=== PATIENT | female | born 1965 | race Caucasian/White ===

== ENCOUNTER 2017-07-12 20:33 | Emergency (ER) | payer BC ==
[~2017-07-12] VITALS: Ht 157.5 cm; Wt 104.3 kg
[~2017-07-12 20:33] MED LIST: ACETAMINOPHEN-1 EAC1 PO; AMBIEN 5 MG TABL5 M1 PO; CYMBALTA60 MG PO; DILAUDID 4 MG TA4 M1 PO; EPIPEN 2-P0.3 MG/0.3 IM; FLAGYL500 MG PO; GLUCOPHAGE1000 MG PO; HYDROCODONE-AP1 EAC6 PO; LEVAQUIN 750 M750 MG PO; LIPITOR40 MG PO; LISINOPRIL20 MG PO; MELOXICAM10 GM PO; MORPHINE SULFAT15 M3 PO; NASONEX17 GM NASAL; NEURONTIN 300300 M1 PO; NORCO 5-325 TA1 EACH PO; OMEPRAZOLE 20 M20 M1 PO; OXYCONTIN20 M1 PO; PEPTO-BISMOL262 M1 PO; PERCOCET 5-3251 EACH PO; POTASSIUM20 PO; PRAVACHOL 20 MG20 M1 PO; PREDNISONE 10 M10 MG PO; PRINIVIL20 MG PO; PRINZIDE 20-251 EACH PO; RANITIDINE 150150 MG PO; TESSALON PERLE100 MG PO; THROAT LOZENGE1 EACH MM; TOPAMAX50 MG PO; ZOFRAN4 MG PO; ZPAK PO
[2017-07-12] MEDS ORDERED: DICLOFENAC SODI25 MG PO (20:47)
[2017-07-12] MEDS ORDERED: TRAMADOL 50 MG50 MG (20:47)
[2017-07-12] MEDS ORDERED: ZANAFLEX4 MG (20:48)
[2017-07-12] MEDS ORDERED: OMEGA-31000 M1 (20:48)
[2017-07-12] MEDS ORDERED: ZYRTEC10 M5 (20:48)
[2017-07-12] MEDS ORDERED: NASONEX17 GM (20:49)
[2017-07-12] MEDS ORDERED: ERGOCALCIF50000 UNIT (20:49)
[2017-07-12] MEDS ORDERED: BENADRYL25 MG (20:49)
[2017-07-12] MEDS ORDERED: VITAMIN B-12500 MCG (20:50)
[2017-07-12] MEDS ORDERED: CYMBALTA60 MG (20:50)
[2017-07-12 21:41] LABS: ABSOLUTE BASOPHILS 0.1 thou/uL (0.0-0.2); ABSOLUTE EOSINOPHILS 0.1 thou/uL (0.0-0.7); ABSOLUTE LYMPHOCYTES 4.1 thou/uL (0.8-5.3); ABSOLUTE MONOCYTES 0.8 thou/uL (0.0-1.2); ABSOLUTE NEUTROPHILS 6.5 thou/uL (1.6-8.1); BASOPHILS 0.6 %; EOSINOPHILS 0.5 %; HEMATOCRIT 44.8 % (37.0-47.0); HEMOGLOBIN 15.1 gm/dL (12.0-15.0); LYMPHOCYTES 35.7 %; MCHC 33.8 g/dL (28.0-37.0); MCV 88.5 fL (80.0-100.0); MONOCYTES 7.1 %; MPV 9.6 fl. (7.2-11.1); NUCLEATED RBCS 0 /100WBC; PLATELET COUNT* 348 thou/uL (150-400); POLYS 56.1 %; RBC 5.06 mil/uL (4.20-5.00); RDW-CV 13.5 % (10.5-14.5); WBC 11.6 thou/uL (4.0-11.0)
[2017-07-12 21:58] LABS: CALCIUM 9.4 mg/dL (8.5-10.1); CREATININE 1.2 mg/dL (0.6-1.3); POTASSIUM 3.1 mmol/L (3.5-5.1)
[2017-07-12 22:02] LABS: TOTAL BILIRUBIN 0.4 mg/dL (<0.1-1.0); TOTAL PROTEIN 8.1 g/dL (6.4-8.2)
[2017-07-13 00:34] LABS: URINE BILIRUBIN NEGATIVE (Negative); URINE BLOOD NEGATIVE (Negative); URINE CLARITY CLEAR; URINE COLOR YELLOW; URINE GLUCOSE-RANDOM NEGATIVE (Negative); URINE KETONES 1+ (Negative); URINE LEUKOCYTES-REFLEX NEGATIVE (Negative); URINE NITRITE-REFLEX NEGATIVE (Negative); URINE PROTEIN NEGATIVE (Negative); URINE SPECIFIC GRAVITY 1.015 (1.005-1.030); URINE UROBILINOGEN 0.2 E.U./dl (0.2-1.0)
[2017-07-13] MEDS ORDERED: BENTYL 20 MG TA20 M1 PO (01:03)
[2017-07-13] MEDS ORDERED: ZOFRAN ODT4 MG PO (01:03)
[2017-07-13 01:38] VITALS: BP 102/71
== END 2017-07-13 01:39 | disposition home or self-care (01) ==
LOC: M.ERS 20:33
PROVIDERS: Nurse Practitioner Family
DX: K52.9 Noninfective gastroenteritis and colitis, unspecified (principal); K59.8 Other specified functional intestinal disorders; I10 Essential (primary) hypertension; E78.00 Pure hypercholesterolemia, unspecified; G89.29 Other chronic pain; M32.9 Systemic lupus erythematosus, unspecified; Z90.710 Acquired absence of both cervix and uterus; Z96.642 Presence of left artificial hip joint; Z86.718 Personal history of other venous thrombosis and embolism; Z98.890 Other specified postprocedural states; Z91.013 Allergy to seafood; Z88.1 Allergy status to other antibiotic agents; Z88.4 Allergy status to anesthetic agent; Z91.041 Radiographic dye allergy status; Z88.0 Allergy status to penicillin; Z88.8 Allergy status to other drugs, medicaments and biological substances

== ENCOUNTER 2017-09-01 09:39 | Emergency (ER) | payer BC ==
[~2017-09-01] VITALS: Ht 157.5 cm; Wt 102.1 kg
[~2017-09-01 09:39] MED LIST changes: +BENADRYL25 MG; +BENTYL 20 MG TA20 M1 PO; +CYMBALTA60 MG; +DICLOFENAC SODI25 MG PO; +ERGOCALCIF50000 UNIT; +NASONEX17 GM; +OMEGA-31000 M1; +TRAMADOL 50 MG50 MG; +VITAMIN B-12500 MCG; +ZANAFLEX4 MG; +ZOFRAN ODT4 MG PO; +ZYRTEC10 M5
[2017-09-01] MEDS ORDERED: PERCOCET PO (09:58)
[2017-09-01 10:18] LABS: URINE BILIRUBIN NEGATIVE (Negative); URINE BLOOD NEGATIVE (Negative); URINE CLARITY CLEAR; URINE COLOR YELLOW; URINE GLUCOSE-RANDOM NEGATIVE (Negative); URINE KETONES NEGATIVE (Negative); URINE LEUKOCYTES-REFLEX NEGATIVE (Negative); URINE NITRITE-REFLEX NEGATIVE (Negative); URINE PROTEIN NEGATIVE (Negative); URINE SPECIFIC GRAVITY 1.015 (1.005-1.030)
[2017-09-01 10:50] LABS: ABSOLUTE EOSINOPHILS 0.1 thou/uL (0.0-0.7); ABSOLUTE MONOCYTES 0.4 thou/uL (0.0-1.2); ABSOLUTE NEUTROPHILS 3.6 thou/uL (1.6-8.1); BASOPHILS 0.6 %; EOSINOPHILS 1.2 %; HEMATOCRIT 39.7 % (37.0-47.0); HEMOGLOBIN 13.5 gm/dL (12.0-15.0); LYMPHOCYTES 33.3 %; MCH 30.5 pg (26.0-34.0); MCHC 33.9 g/dL (28.0-37.0); MCV 89.8 fL (80.0-100.0); MONOCYTES 6.1 %; MPV 9.5 fl. (7.2-11.1); NUCLEATED RBCS 0 /100WBC; PLATELET COUNT* 306 thou/uL (150-400); POLYS 58.8 %; RBC 4.42 mil/uL (4.20-5.00); RDW-CV 14.3 % (10.5-14.5); WBC 6.1 thou/uL (4.0-11.0)
[2017-09-01 10:56] LABS: CALCIUM 8.8 mg/dL (8.5-10.1); CREATININE 0.9 mg/dL (0.6-1.3); POTASSIUM 3.3 mmol/L (3.5-5.1)
[2017-09-01 11:01] LABS: ALBUMIN 3.5 g/dL (3.4-5.0); TOTAL BILIRUBIN 0.4 mg/dL (<0.1-1.0); TOTAL PROTEIN 7.2 g/dL (6.4-8.2)
[2017-09-01] MEDS ORDERED: ROBAXIN500 MG PO (11:12)
[2017-09-01 11:34] VITALS: BP 108/62
== END 2017-09-01 11:35 | disposition home or self-care (01) ==
LOC: M.ERS 09:39
PROVIDERS: Nurse Practitioner Family
DX: S29.012A Strain of muscle and tendon of back wall of thorax, initial encounter (principal); I10 Essential (primary) hypertension; E78.00 Pure hypercholesterolemia, unspecified; E11.9 Type 2 diabetes mellitus without complications; M79.7 Fibromyalgia; M32.9 Systemic lupus erythematosus, unspecified; M86.9 Osteomyelitis, unspecified; Z96.642 Presence of left artificial hip joint; Z90.710 Acquired absence of both cervix and uterus; Z86.718 Personal history of other venous thrombosis and embolism; Z86.711 Personal history of pulmonary embolism; Z91.013 Allergy to seafood; Z88.1 Allergy status to other antibiotic agents; Z91.041 Radiographic dye allergy status; Z88.0 Allergy status to penicillin; X58.XXXA Exposure to other specified factors, initial encounter; Y93.89 Activity, other specified; Y92.89 Other specified places as the place of occurrence of the external cause; Y99.8 Other external cause status

== ENCOUNTER 2019-04-14 12:25 | Emergency (ER) | payer BC ==
[~2019-04-14] VITALS: Ht 160 cm; Wt 106.6 kg
[~2019-04-14 12:25] MED LIST changes: +PERCOCET PO; +ROBAXIN500 MG PO
[2019-04-14] MEDS ORDERED: XARELTO10 MG PO (12:34)
[2019-04-14] MEDS ORDERED: OMEPRAZOLE40 MG PO (12:36)
[2019-04-14] MEDS ORDERED: IMITREX 50 MG T50 MG PO (12:37)
[2019-04-14] MEDS ORDERED: PNV 29-1 TABLE1 EACH PO (12:37)
[2019-04-14] MEDS ORDERED: MIRAPEX ER0.75 MG PO (12:38)
[2019-04-14] MEDS ORDERED: ULTRAM 50MG TAB50 MG PO (12:40)
[2019-04-14] MEDS ORDERED: BELSOMRA20 MG PO (12:41)
[2019-04-14 12:46] LABS: ABSOLUTE BASOPHILS 0.1 thou/uL (0.0-0.2); ABSOLUTE EOSINOPHILS 0.2 thou/uL (0.0-0.7); ABSOLUTE LYMPHOCYTES 1.8 thou/uL (0.8-5.3); ABSOLUTE MONOCYTES 0.6 thou/uL (0.0-1.2); BASOPHILS 0.8 %; HEMATOCRIT 37.8 % (37.0-47.0); HEMOGLOBIN 12.6 gm/dL (12.0-15.0); LYMPHOCYTES 27.2 %; MCH 28.7 pg (26.0-34.0); MCHC 33.2 g/dL (28.0-37.0); MCV 86.6 fL (80.0-100.0); MONOCYTES 8.6 %; MPV 8.9 fl. (7.2-11.1); NUCLEATED RBCS 0 /100WBC; PLATELET COUNT* 334 thou/uL (150-400); POLYS 60.4 %; RBC 4.37 mil/uL (4.20-5.00); RDW-CV 15.1 % (10.5-14.5); WBC 6.6 thou/uL (4.0-11.0)
[2019-04-14 12:53] LABS: ANION GAP 9 mmol/L (7-16); BUN 16 mg/dL (7-18); CALCIUM 9.4 mg/dL (8.5-10.1); CHLORIDE 101 mmol/L (98-107); CO2 27 mmol/L (21-32); CREATININE 0.9 mg/dL (0.6-1.3); GLUCOSE 100 mg/dL (70-99); INR 1.2; POTASSIUM 3.5 mmol/L (3.5-5.1); SODIUM 137 mmol/L (136-145)
[2019-04-14 13:07] LABS: ALBUMIN 3.6 g/dL (3.4-5.0); ALKALINE PHOSPHATASE 106 U/L (46-116); CK-MB MASS < 0.5 ng/mL (<0.5-3.6); LIPASE 156 U/L (73-393); MAGNESIUM 1.9 mg/dL (1.8-2.4); NT-PRO BRAIN NAT PEPTIDE 59 pg/mL (<300); SGOT 16 U/L (15-37); SGPT 28 U/L (30-65); TOTAL BILIRUBIN 0.3 mg/dL (<0.1-1.0); TOTAL PROTEIN 7.6 g/dL (6.4-8.2)
[2019-04-14 15:14] VITALS: BP 103/61
--- NOTE | 2019-04-15 14:23 | EKG ---
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 : 1965 Requested By: Boston Godoy Order Number: [id number] MD: Dominic De Anda Measurements Intervals [place] Rate: 94 P: 43 [place]: 165 QRS: 13 QRSD: 100 T: 17 QT: 337 QTc: 422 Interpretive Statements Sinus rhythm Compared to ECG 01/30/2017 13:34:39 Sinus tachycardia no longer present Inferior Q waves no longer present Q waves no longer present T-wave abnormality no longer present Electronically Signed On 04-15-2019 14:23:02 CDT by Dominic De Anda [email or web address] <ELECTRONICALLY SIGNED> By: Ricardo De Anda MD, [facility] 04/15/19 1423 1229 1229 Ricardo De Anda MD, [facility] /EPI
== END 2019-04-14 15:17 | disposition home or self-care (01) ==
LOC: M.ERS 12:25
PROVIDERS: Family Medicine
DX: R07.89 Other chest pain (principal); I10 Essential (primary) hypertension; E78.00 Pure hypercholesterolemia, unspecified; E11.9 Type 2 diabetes mellitus without complications; M79.7 Fibromyalgia; G89.29 Other chronic pain; Z88.0 Allergy status to penicillin; Z91.041 Radiographic dye allergy status; Z88.1 Allergy status to other antibiotic agents; Z91.013 Allergy to seafood; Z88.6 Allergy status to analgesic agent; Z96.642 Presence of left artificial hip joint; Z98.51 Tubal ligation status; Z86.718 Personal history of other venous thrombosis and embolism; Z86.711 Personal history of pulmonary embolism

== ENCOUNTER 2020-05-25 09:23 | Emergency (ER) | payer BC ==
[~2020-05-25] VITALS: Ht 157.5 cm; Wt 113.4 kg
[~2020-05-25 09:23] MED LIST changes: +BELSOMRA20 MG PO; +IMITREX 50 MG T50 MG PO; +MIRAPEX ER0.75 MG PO; +OMEPRAZOLE40 MG PO; +PNV 29-1 TABLE1 EACH PO; +ULTRAM 50MG TAB50 MG PO; +XARELTO10 MG PO
[2020-05-25] MEDS ORDERED: AMITRIPTYLINE H25 M2 PO (09:53)
[2020-05-25 09:55] LABS: HEMATOCRIT 37.2 % (37.0-47.0); MCH 27.8 pg (26.0-34.0); MCHC 32.3 g/dL (28.0-37.0); MPV 7.9 fl. (7.2-11.1); RBC 4.32 mil/uL (4.20-5.00); RDW-CV 16.3 % (10.5-14.5); WBC 4.9 thou/uL (4.0-11.0)
[2020-05-25 10:05] LABS: CALCIUM 8.6 mg/dL (8.5-10.1); CREATININE 0.8 mg/dL (0.6-1.3); POTASSIUM 4.1 mmol/L (3.5-5.1)
[2020-05-25 10:10] LABS: TOTAL BILIRUBIN 0.3 mg/dL (<0.1-1.0)
[2020-05-25] MEDS ORDERED: FLEXERIL PO (11:04)
[2020-05-25 11:20] VITALS: BP 162/98
== END 2020-05-25 11:23 | disposition home or self-care (01) ==
LOC: M.ERS 09:23
PROVIDERS: Emergency Medicine Emergency Medical Services
DX: M79.605 Pain in left leg (principal); I10 Essential (primary) hypertension; E78.00 Pure hypercholesterolemia, unspecified; E11.9 Type 2 diabetes mellitus without complications; M79.7 Fibromyalgia; M86.9 Osteomyelitis, unspecified; Z79.899 Other long term (current) drug therapy; Z91.013 Allergy to seafood; Z88.1 Allergy status to other antibiotic agents; Z88.0 Allergy status to penicillin; Z88.8 Allergy status to other drugs, medicaments and biological substances; Z90.49 Acquired absence of other specified parts of digestive tract; Z90.710 Acquired absence of both cervix and uterus; Z86.718 Personal history of other venous thrombosis and embolism

== ENCOUNTER 2020-12-17 12:48 | Emergency (ER) | payer BC ==
[~2020-12-17] VITALS: Ht 157.5 cm; Wt 127.9 kg
[~2020-12-17 12:48] MED LIST changes: +AMITRIPTYLINE H25 M2 PO; +FLEXERIL PO
[2020-12-17] MEDS ORDERED: NORCO5 PO (15:58)
[2020-12-17 16:06] VITALS: BP 156/97
== END 2020-12-17 16:08 | disposition home or self-care (01) ==
LOC: M.ERS 12:48
DX: S70.02XA Contusion of left hip, initial encounter (principal); S80.02XA Contusion of left knee, initial encounter; I10 Essential (primary) hypertension; E78.00 Pure hypercholesterolemia, unspecified; E11.9 Type 2 diabetes mellitus without complications; M79.7 Fibromyalgia; M32.9 Systemic lupus erythematosus, unspecified; Z90.710 Acquired absence of both cervix and uterus; Z86.718 Personal history of other venous thrombosis and embolism; Z86.711 Personal history of pulmonary embolism; Z96.653 Presence of artificial knee joint, bilateral; Z96.643 Presence of artificial hip joint, bilateral; Z91.041 Radiographic dye allergy status; Z88.0 Allergy status to penicillin; Z88.1 Allergy status to other antibiotic agents; Z88.8 Allergy status to other drugs, medicaments and biological substances; Z91.013 Allergy to seafood; W01.0XXA Fall on same level from slipping, tripping and stumbling without subsequent striking against object, initial encounter; Y93.89 Activity, other specified; Y92.89 Other specified places as the place of occurrence of the external cause; Y99.8 Other external cause status

== ENCOUNTER 2021-01-10 14:40 | Emergency (ER) | payer BC ==
[~2021-01-10] VITALS: Ht 157.5 cm; Wt 114.8 kg
[~2021-01-10 14:40] MED LIST changes: +NORCO5 PO
[2021-01-10 15:05] LABS: ABSOLUTE EOSINOPHILS 0.2 thou/uL (0.0-0.7); ABSOLUTE LYMPHOCYTES 2.5 thou/uL (0.8-5.3); ABSOLUTE MONOCYTES 0.6 thou/uL (0.0-1.2); ABSOLUTE NEUTROPHILS 3.9 thou/uL (1.6-8.1); BASOPHILS 0.5 %; HEMOGLOBIN 14.2 gm/dL (12.0-15.0); LYMPHOCYTES 34.7 %; MCH 30.1 pg (26.0-34.0); MCHC 33.9 g/dL (28.0-37.0); MCV 88.7 fL (80.0-100.0); MPV 9.2 fl. (7.2-11.1); NUCLEATED RBCS 0 /100WBC; PLATELET COUNT* 337 thou/uL (150-400); POLYS 53.8 %; RBC 4.74 mil/uL (4.20-5.00); RDW-CV 14.2 % (10.5-14.5); WBC 7.3 thou/uL (4.0-11.0)
[2021-01-10 15:13] LABS: ANION GAP 12 mmol/L (7-16); BUN 20 mg/dL (7-18); CALCIUM 8.9 mg/dL (8.5-10.1); CHLORIDE 108 mmol/L (98-107); CO2 23 mmol/L (21-32); CREATININE 0.8 mg/dL (0.6-1.3); GLUCOSE 121 mg/dL (70-99); SODIUM 143 mmol/L (136-145)
[2021-01-10 15:26] LABS: ALBUMIN 3.4 g/dL (3.4-5.0); ALKALINE PHOSPHATASE 120 U/L (46-116); CK-MB MASS < 0.5 ng/mL (<0.5-3.6); LIPASE 154 U/L (73-393); MAGNESIUM 2.2 mg/dL (1.8-2.4); NT-PRO BRAIN NAT PEPTIDE 19 pg/mL (<300); SGOT 31 U/L (15-37); SGPT 63 U/L (30-65); TOTAL BILIRUBIN 0.2 mg/dL (<0.1-1.0); TOTAL PROTEIN 7.5 g/dL (6.4-8.2)
[2021-01-10 15:47] VITALS: BP 139/97
--- NOTE | 2021-01-10 15:58 | EKG ---
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 : 1965 Requested By: Boston Godoy Order Number: [id number] MD: Angelo Gordon Measurements Intervals [place] Rate: 110 P: 44 [place]: 170 QRS: 50 QRSD: 102 T: 31 QT: 326 QTc: 442 Interpretive Statements Sinus tachycardia Baseline wander in lead(s) V3 Compared to ECG 04/14/2019 12:29:56 Sinus rhythm no longer present Electronically Signed On 01-10-2021 15:58:33 CDT by Angelo Gordon [email or web address] <ELECTRONICALLY SIGNED> By: Angelo Gordon MD, [facility] 01/10/21 1558 1445 1445 Angelo Gordon MD, [facility] /EPI
== END 2021-01-10 15:49 | disposition home or self-care (01) ==
LOC: M.ERS 14:40
PROVIDERS: Family Medicine
DX: R07.89 Other chest pain (principal); I10 Essential (primary) hypertension; E78.00 Pure hypercholesterolemia, unspecified; E11.9 Type 2 diabetes mellitus without complications; M79.7 Fibromyalgia; G89.29 Other chronic pain; M32.9 Systemic lupus erythematosus, unspecified; Z88.0 Allergy status to penicillin; Z88.1 Allergy status to other antibiotic agents; Z91.041 Radiographic dye allergy status; Z88.8 Allergy status to other drugs, medicaments and biological substances; Z91.013 Allergy to seafood; Z96.643 Presence of artificial hip joint, bilateral; Z96.653 Presence of artificial knee joint, bilateral; Z90.710 Acquired absence of both cervix and uterus; Z90.49 Acquired absence of other specified parts of digestive tract; Z98.51 Tubal ligation status; Z86.718 Personal history of other venous thrombosis and embolism; Z86.711 Personal history of pulmonary embolism